=== PATIENT | male | born 1950 | race Caucasian/White ===

== ENCOUNTER 2018-01-28 11:47 | Observation (INO) | payer BC, MEDICARE ==
[2018-01-23 08:48] VITALS: BP 159/81
[~2018-01-28] VITALS: Ht 180.3 cm; Wt 89.1 kg
[~2018-01-28 11:47] MED LIST: FINA5TAB4 PO; TAMS-11 PO
[2018-01-28] MEDS ORDERED: LACTATED RINGERS 1,000 ML IV SCH (12:46)
[2018-01-28] MEDS ORDERED: LIDOCAINE-MPF 1%, 2ML INFIL ONE (13:00)
[2018-01-28] MEDS ORDERED: ONDANSETRON ODT 8 MG PO STA (13:58)
[2018-01-28] MEDS ORDERED: TAMSULOSIN 0.4 MG CAP.ER.24H PO STA (13:58)
[2018-01-28] MEDS ORDERED: GABAPENTIN 300 MG CAPSULE PO STA (13:58)
[2018-01-28] MEDS ORDERED: ACETAMINOPHEN 500 MG TABLET PO STA (13:58)
[2018-01-28] MEDS ORDERED: MIDAZOLAM 1 MG/ML, 2ML ONE (14:37)
[2018-01-28] MEDS ORDERED: FENTANYL PF 100 MCG/2ML ONE (14:38)
[2018-01-28] MEDS ORDERED: OPIUM/BELLADONNA SUPP.RECT 16.2-30 MG PR PRN (15:30)
[2018-01-28] MEDS ORDERED: ONDANSETRON 2MG/ML, 2ML IVPush PRN (15:30)
[2018-01-28] MEDS ORDERED: HYDROmorphone 1 MG/ML, 1ML IV PRN ×2 (15:30→16:00)
[2018-01-28] MEDS ORDERED: MEPERIDINE/PF 25MG/0.5ML IVPush PRN (16:00)
[2018-01-28] MEDS ORDERED: ONDANSETRON 2MG/ML, 2ML IV PRN (16:00)
[2018-01-28] MEDS ORDERED: SCOPOLAMINE PATCH, 1.5MG PATCH.TD72 TD PRN (16:00)
[2018-01-28] MEDS ORDERED: hydrALAzine 20 MG/ML, 1ML IV PRN (16:00)
[2018-01-28] MEDS ORDERED: PROPOFOL 10 MG/ML, 20ML ONE (16:00)
[2018-01-28] MEDS ORDERED: MIDAZOLAM 1 MG/ML, 2ML IV PRN (16:00)
[2018-01-28] MEDS ORDERED: FENTANYL PF 100 MCG/2ML IV PRN (16:00)
[2018-01-28] MEDS ORDERED: LABETALOL 5MG/ML, 20ML IV PRN (16:00)
[2018-01-28] MEDS ORDERED: DEXAMETHASONE 4 MG/ML, 1ML ONE (16:00)
[2018-01-28] MEDS ORDERED: PROMETHAZINE 25 MG SUPP PR PRN (16:00)
[2018-01-28] MEDS ORDERED: OXYcodone 5 MG/5 ML ORAL.SOL UDC PO PRN ×2 (16:00→16:30)
[2018-01-28] MEDS ORDERED: ALBUTEROL/IPRATROPIUM 2.5MG/0.5MG, 3 ML NPPB PRN (16:00)
[2018-01-28] MEDS ORDERED: OXYcodone 5 MG/5 ML ORAL.SOL UDC ONE (16:46)
[2018-01-28] MEDS ORDERED: CIPROFLOXACIN/PMX 400MG/200ML 200 ML IVPB SCH (18:00)
[2018-01-28] MEDS: D5%-LACTATED RINGERS 1,000 ML IV SCH (18:40)
[2018-01-28 18:55] VITALS: BP 118/73
[2018-01-28] MEDS: ACETAMINOPHEN 325 MG TABLET PO SCH (21:49)
[2018-01-29 02:04] VITALS: BP 149/76
[2018-01-29] MEDS: ACETAMINOPHEN 325 MG TABLET PO SCH ×3 (02:56→15:00)
[2018-01-29] MEDS: D5%-LACTATED RINGERS 1,000 ML IV SCH ×3 (02:57→16:05)
[2018-01-29] MEDS: CIPROFLOXACIN/PMX 400MG/200ML 200 ML IVPB SCH ×2 (02:57→15:00)
[2018-01-29 08:20] VITALS: BP 132/76
[2018-01-29] MEDS ORDERED: FINASTERIDE 5 MG TABLET PO SCH (09:00)
[2018-01-29] MEDS ORDERED: POLYETHYLENE GLYCOL 17 GM PACKET PO SCH ×2 (09:00)
[2018-01-29] MEDS ORDERED: TAMSULOSIN 0.4 MG CAP.ER.24H PO SCH (09:00)
[2018-01-29 14:11] VITALS: BP 129/70
== END 2018-01-29 13:29 | disposition home or self-care (01) ==
LOC: OUT 11:47 → ORIP 15:15 → INTOOBSV 15:15 → 4NOR 17:44
PROVIDERS: ADMIT Student in an Organized Health Care Education/Training Program; ATTEND Student in an Organized Health Care Education/Training Program
DX: N40.1 Benign prostatic hyperplasia with lower urinary tract symptoms (principal); N32.0 Bladder-neck obstruction; Z87.891 Personal history of nicotine dependence
CPT/HCPCS: 52601; 88305; 96365; G0378; J0744; J1100; J2250; J2704; J3010; J7120; J7121; Q0162